=== PATIENT | female | born 1995 | race African-American/Black ===

== ENCOUNTER 2016-04-18 16:10 | Emergency (ER) | payer OTHER ==
[~2016-04-18] VITALS: Ht 167.6 cm; Wt 89.4 kg
[~2016-04-18 16:10] MED LIST: AMOXICILLIN500 M1 PO; AUGMENTIN 875875 M1 PO; AUGMENTIN 875875 MG PO; BACTRIM DS TAB1 EACH PO; CAVAN-FOLATE D1 EACH PO; CLEOCIN100 MG VAG; IBUPROFEN 600600 M1 PO; MACROBID 100 M100 M1 PO; NOHOMEMEDICATIONS; PREDNISONE 20 M20 MG PO
[2016-04-18] MEDS ORDERED: PREDNISONE 20 M20 MG PO (19:09)
[2016-04-18] MEDS ORDERED: MOBIC15 MG PO (19:09)
[2016-04-18 19:23] VITALS: BP 106/64
[2016-06-21] MEDS ORDERED: FLAGYL500 MG PO (23:09)
== END 2016-04-18 19:24 | disposition home or self-care (01) ==
LOC: ER 16:10
DX: J40 Bronchitis, not specified as acute or chronic (principal); R51 Headache

== ENCOUNTER 2016-04-30 14:42 | Emergency (ER) | payer OTHER ==
[~2016-04-30] VITALS: Ht 167.6 cm; Wt 89.4 kg
[~2016-04-30 14:42] MED LIST changes: +MOBIC15 MG PO
[2016-04-30 14:52] VITALS: BP 122/80
[2016-04-30] MEDS ORDERED: AUGMENTIN 875875 MG PO (15:08)
[2016-06-21] MEDS ORDERED: FLAGYL500 MG PO (23:09)
== END 2016-04-30 15:28 | disposition home or self-care (01) ==
LOC: ER 14:42
DX: J01.80 Other acute sinusitis (principal); B96.89 Other specified bacterial agents as the cause of diseases classified elsewhere; H66.93 Otitis media, unspecified, bilateral

== ENCOUNTER 2016-07-18 06:44 | Emergency (ER) | payer OTHER ==
[~2016-07-18] VITALS: Ht 167.6 cm; Wt 81.7 kg
[~2016-07-18 06:44] MED LIST changes: +FLAGYL500 MG PO
[2016-07-18] MEDS ORDERED: PEPCID40 MG PO (09:11)
[2016-07-18] MEDS ORDERED: PREDNISONE 20 M20 MG PO (09:11)
[2016-07-18 09:17] VITALS: BP 110/66
== END 2016-07-18 09:18 | disposition home or self-care (01) ==
LOC: ER 06:44
DX: T78.3XXA Angioneurotic edema, initial encounter (principal); G61.0 Guillain-Barre syndrome; F17.210 Nicotine dependence, cigarettes, uncomplicated

== ENCOUNTER 2017-01-05 19:26 | Emergency (ER) | payer OTHER ==
[~2017-01-05] VITALS: Ht 167.6 cm; Wt 81.7 kg
[~2017-01-05 19:26] MED LIST changes: +PEPCID40 MG PO
[2017-01-05 19:49] LABS: URINE BILIRUBIN NEGATIVE (Negative); URINE BLOOD 2+ (Negative); URINE COLOR YELLOW; URINE GLUCOSE-RANDOM* NEGATIVE (Negative); URINE KETONES NEGATIVE (Negative); URINE NITRITE NEGATIVE (Negative); URINE PROTEIN (DIPSTICK) NEGATIVE (Negative); URINE SPECIFIC GRAVITY >= 1.030 (1.003-1.035); URINE UROBILINOGEN 0.2 E.U./dl (0.2-1.0)
[2017-01-05 20:08] LABS: CASTS None Seen /LPF (None Seen); CRYSTALS None Seen /LPF (None Seen); SQUAMOUS 4-10 Moderate /LPF (0-3)
[2017-01-05 20:09] LABS: URINE RBC 0-2 Rare /HPF (0-2); URINE WBC 0-5 Rare /HPF (0-5)
[2017-01-05 20:19] LABS: HEMOGLOBIN 11.6 gm/dL (12.0-15.0); MCH 29.7 pg (26.0-34.0); MCHC 33.2 g/dL (28.0-37.0); MCV 89.3 fL (80.0-100.0); RBC 3.92 mil/uL (4.20-5.00); RDW 13.5 % (10.5-14.5); WBC 7.8 thou/uL (4.0-11.0)
[2017-01-05 20:29] LABS: CALCIUM 8.9 mg/dL (8.5-10.1); CREATININE 0.7 mg/dL (0.6-1.0); POTASSIUM 3.8 mmol/L (3.5-5.1)
[2017-01-05 20:35] LABS: ALBUMIN 3.8 g/dL (3.4-5.0); TOTAL BILIRUBIN 0.2 mg/dL (<0.1-1.0); TOTAL PROTEIN 7.3 g/dL (6.4-8.2)
[2017-01-05] MEDS ORDERED: CYCLOBENZAPRINE5 MG PO (21:46)
[2017-01-05] MEDS ORDERED: MOBIC7.5 MG PO (21:46)
[2017-01-05 21:55] VITALS: BP 114/76
== END 2017-01-05 21:55 | disposition home or self-care (01) ==
LOC: ER 19:26
PROVIDERS: Physician Assistant
DX: S16.1XXA Strain of muscle, fascia and tendon at neck level, initial encounter (principal); S39.012A Strain of muscle, fascia and tendon of lower back, initial encounter; R10.84 Generalized abdominal pain; G61.0 Guillain-Barre syndrome; F17.210 Nicotine dependence, cigarettes, uncomplicated; F10.99 Alcohol use, unspecified with unspecified alcohol-induced disorder; V49.40XA Driver injured in collision with unspecified motor vehicles in traffic accident, initial encounter; Y93.I9 Activity, other involving external motion; Y92.415 Exit ramp or entrance ramp of street or highway as the place of occurrence of the external cause; Y99.8 Other external cause status

== ENCOUNTER 2017-02-09 15:51 | Emergency (ER) | payer OTHER ==
[~2017-02-09] VITALS: Ht 165.1 cm; Wt 86.2 kg
--- NOTE | ~2017-02-09 | EKG ---
[address] [address] ELECTROCARDIOGRAM REPORT Name: JARRETT ALANIZ [id number] Admission: 02/09/17 Attend Phys: Discharge: 02/09/17 Date of : [birth year] Report #: [id number] THIS REPORT FOR: //name// [facility] ED Test Date: 2017-02-09 Test Time: 15:59:25 Pat Name: JARRETT ALANIZ Department: Room: Gender: F Camera Maker: [facility] : 1995 Requested By: Moshe Yeager Order Number: [id number] MD: Martin Hernandez Measurements Intervals [place] Rate: 90 P: 60 AR: 138 QRS: 47 QRSD: 93 T: 54 QT: 366 QTc: 448 Interpretive Statements Sinus rhythm No significant abnormality No previous ECG available for comparison Electronically Signed On 02-10-2017 8:25:33 CDT by Martin Hernandez [email or web address] <ELECTRONICALLY SIGNED> By: Martin Hernandez MD, [facility] 02/10/17 0825 1559 1559 Martin Hernandez MD, FACC /EPI
[~2017-02-09 15:51] MED LIST changes: +CYCLOBENZAPRINE5 MG PO; +MOBIC7.5 MG PO
[2017-02-09 16:56] VITALS: BP 120/77
== END 2017-02-09 17:46 | disposition home or self-care (01) ==
LOC: ER 15:51
DX: R07.89 Other chest pain (principal); R51 Headache; F17.210 Nicotine dependence, cigarettes, uncomplicated; F10.99 Alcohol use, unspecified with unspecified alcohol-induced disorder; G61.0 Guillain-Barre syndrome

== ENCOUNTER 2017-04-27 19:24 | Emergency (ER) | payer OTHER ==
[~2017-04-27] VITALS: Ht 165.1 cm; Wt 82.6 kg
[2017-04-27 20:18] LABS: URINE BILIRUBIN NEGATIVE (Negative); URINE BLOOD 2+ (Negative); URINE CLARITY CLEAR; URINE COLOR YELLOW; URINE GLUCOSE-RANDOM* NEGATIVE (Negative); URINE KETONES NEGATIVE (Negative); URINE LEUKOCYTES TRACE (Negative); URINE NITRITE NEGATIVE (Negative); URINE PROTEIN (DIPSTICK) NEGATIVE (Negative); URINE SPECIFIC GRAVITY >= 1.030 (1.005-1.035); URINE UROBILINOGEN 0.2 E.U./dl (0.2-1.0)
[2017-04-27 20:42] LABS: SQUAMOUS >10 Many /LPF (0-3)
[2017-04-27 20:44] LABS: CASTS None Seen /LPF (None Seen); CRYSTALS None Seen /LPF (None Seen); URINE RBC 0-2 Rare /HPF (0-2); URINE WBC 6-15 Few /HPF (0-5); YEAST Present (None Seen)
[2017-08-16] MEDS ORDERED: TRAMADOL 50 MG50 MG PO (11:23)
== END 2017-04-27 20:53 | disposition home or self-care (01) ==
LOC: ER 19:24
PROVIDERS: Emergency Medicine
DX: N89.8 Other specified noninflammatory disorders of vagina (principal); T78.40XA Allergy, unspecified, initial encounter; X58.XXXA Exposure to other specified factors, initial encounter

== ENCOUNTER 2017-04-29 12:18 | Emergency (ER) | payer OTHER ==
[~2017-04-29] VITALS: Ht 165.1 cm; Wt 82.6 kg
[2017-04-29] MEDS ORDERED: FLAGYL500 MG PO (13:03)
[2017-08-16] MEDS ORDERED: TRAMADOL 50 MG50 MG PO (11:23)
== END 2017-04-29 13:25 | disposition home or self-care (01) ==
LOC: ER 12:18
DX: N89.8 Other specified noninflammatory disorders of vagina (principal); G61.0 Guillain-Barre syndrome; F17.210 Nicotine dependence, cigarettes, uncomplicated

== ENCOUNTER 2017-05-13 17:42 | Emergency (ER) | payer OTHER ==
[~2017-05-13] VITALS: Ht 165.1 cm; Wt 86.2 kg
[2017-05-13 18:46] LABS: URINE BILIRUBIN NEGATIVE (Negative); URINE BLOOD 2+ (Negative); URINE CLARITY CLEAR; URINE COLOR YELLOW; URINE GLUCOSE-RANDOM* NEGATIVE (Negative); URINE KETONES TRACE (Negative); URINE LEUKOCYTES-REFLEX NEGATIVE (Negative); URINE NITRITE-REFLEX NEGATIVE (Negative); URINE PROTEIN (DIPSTICK) NEGATIVE (Negative); URINE SPECIFIC GRAVITY >= 1.030 (1.005-1.035); URINE UROBILINOGEN 0.2 E.U./dl (0.2-1.0)
[2017-05-13 18:58] LABS: CASTS None Seen /LPF (None Seen); CRYSTALS None Seen /LPF (None Seen); MUCUS >6 Heavy strn/LPF (None Seen); SQUAMOUS >10 Many /LPF (0-3); URINE RBC 3-10 Few /HPF (0-2); URINE WBC-REFLEX 6-15 Few /HPF (0-5)
[2017-05-13 19:21] LABS: ABSOLUTE NEUTROPHILS 4.7 thou/uL (1.4-8.2); EOSINOPHILS 5.2 % (0.0-3.0); HEMATOCRIT 37.8 % (37.0-47.0); HEMOGLOBIN 12.8 gm/dL (12.0-15.0); LYMPHOCYTES 31.8 % (24.0-44.0); MCH 30.2 pg (26.0-34.0); MCHC 33.9 g/dL (28.0-37.0); MCV 89.2 fL (80.0-100.0); MONOCYTES 7.9 % (1.0-8.0); PLATELET COUNT 361 thou/uL (150-400); POLYS 54.1 % (36.0-66.0); RBC 4.23 mil/uL (4.20-5.00); RDW 13.7 % (10.5-14.5); WBC 8.6 thou/uL (4.0-11.0)
[2017-05-13 19:28] LABS: CALCIUM 9.3 mg/dL (8.5-10.1); CREATININE 0.8 mg/dL (0.6-1.0); POTASSIUM 3.8 mmol/L (3.5-5.1)
[2017-05-13 19:34] LABS: TOTAL BILIRUBIN 0.1 mg/dL (<0.1-1.0); TOTAL PROTEIN 7.8 g/dL (6.4-8.2)
[2017-05-13] MEDS ORDERED: MOBIC15 MG PO (20:24)
[2017-05-13] MEDS ORDERED: FLAGYL500 MG PO (20:24)
[2017-05-13] MEDS ORDERED: METROGEL-VAGINA70 GM VAG (20:41)
[2017-08-16] MEDS ORDERED: TRAMADOL 50 MG50 MG PO (11:23)
== END 2017-05-13 20:52 | disposition home or self-care (01) ==
LOC: ER 17:42
PROVIDERS: Physician Assistant
DX: N76.0 Acute vaginitis (principal); F17.210 Nicotine dependence, cigarettes, uncomplicated

== ENCOUNTER 2017-08-06 16:19 | Emergency (ER) | payer OTHER ==
[~2017-08-06] VITALS: Ht 165.1 cm; Wt 80.7 kg
[~2017-08-06 16:19] MED LIST changes: +METROGEL-VAGINA70 GM VAG
[2017-08-06 16:33] LABS: URINE BILIRUBIN NEGATIVE (Negative); URINE BLOOD 1+ (Negative); URINE CLARITY CLEAR; URINE COLOR YELLOW; URINE GLUCOSE-RANDOM* NEGATIVE (Negative); URINE KETONES TRACE (Negative); URINE LEUKOCYTES-REFLEX NEGATIVE (Negative); URINE NITRITE-REFLEX NEGATIVE (Negative); URINE PROTEIN (DIPSTICK) NEGATIVE (Negative); URINE SPECIFIC GRAVITY 1.025 (1.005-1.035); URINE UROBILINOGEN 0.2 E.U./dl (0.2-1.0)
[2017-08-06 16:41] LABS: SQUAMOUS >10 Many /LPF (0-3)
[2017-08-06 16:42] LABS: CASTS None Seen /LPF (None Seen); CRYSTALS None Seen /LPF (None Seen); URINE RBC 3-10 Few /HPF (0-2); URINE WBC-REFLEX 0-5 Rare /HPF (0-5)
[2017-08-06 17:39] VITALS: BP 121/75
[2017-08-10 15:11] LABS: NEISSERIA GONORRHEA-PCR Negative (Negative)
== END 2017-08-06 17:45 | disposition home or self-care (01) ==
LOC: ER 16:19
PROVIDERS: Physician Assistant
DX: N72 Inflammatory disease of cervix uteri (principal); F17.210 Nicotine dependence, cigarettes, uncomplicated

== ENCOUNTER 2019-02-15 17:31 | Emergency (ER) | payer BC, OTHER ==
[~2019-02-15] VITALS: Ht 167.6 cm; Wt 77.1 kg
[~2019-02-15 17:31] MED LIST changes: +TRAMADOL 50 MG50 MG PO
[2019-02-15] MEDS ORDERED: ADIPEX-P37.5 MG PO (17:34)
[2019-02-15 17:53] LABS: URINE BILIRUBIN NEGATIVE (Negative); URINE BLOOD TRACE (Negative); URINE CLARITY CLEAR; URINE COLOR YELLOW; URINE GLUCOSE-RANDOM* NEGATIVE (Negative); URINE KETONES NEGATIVE (Negative); URINE LEUKOCYTES-REFLEX 1+ (Negative); URINE NITRITE-REFLEX NEGATIVE (Negative); URINE PROTEIN (DIPSTICK) NEGATIVE (Negative); URINE SPECIFIC GRAVITY 1.015 (1.005-1.035); URINE UROBILINOGEN 0.2 E.U./dl (0.2-1.0)
[2019-02-15 18:06] LABS: CASTS None Seen /LPF (None Seen); CRYSTALS None Seen /LPF (None Seen); SQUAMOUS 4-10 Moderate /LPF (0-3); URINE RBC 3-10 Few /HPF (0-2)
[2019-02-15 18:07] LABS: BACTERIA-REFLEX 1-9 Few /HPF (None Seen); URINE WBC-REFLEX 0-5 Rare /HPF (0-5)
[2019-02-15] MEDS ORDERED: TRAMADOL 50 MG50 MG PO (19:28)
[2019-02-15] MEDS ORDERED: MACROBID 100 M100 MG PO ×3 (19:28→19:34)
[2019-02-15 19:48] VITALS: BP 126/82
== END 2019-02-15 19:49 | disposition home or self-care (01) ==
LOC: ER 17:31
PROVIDERS: Physician Assistant
DX: N39.0 Urinary tract infection, site not specified (principal); R10.31 Right lower quadrant pain; F17.210 Nicotine dependence, cigarettes, uncomplicated